=== PATIENT | female | born 1975 | race Caucasian/White ===

== ENCOUNTER 2018-05-10 06:14 | Emergency (ER) | payer OTHER ==
[2018-05-10 06:30] VITALS: BP 99/72; PULSE 108; TEMP 99.1; BMI 20.7
[2018-05-10] MEDS ORDERED: METOCLOPRAMIDE HCL INJECTION 10 MG/2 ML VIAL ONE (06:36)
[2018-05-10 07:02] LABS: BASO % 0.4 % (0-2.0); EOS % 0.3 % (0-4.5); HEMATOCRIT 38.7 % (32.4-45.2); HEMOGLOBIN 13.5 GM/dL (10.7-15.3); LYMPH % 16.6 % (8-40); MCH 32.3 pg (25.7-33.7); MCHC 34.9 g/dl (32.0-36.0); MEAN CELL VOLUME 92.6 fl (80-96); MEAN PLT VOLUME 7.8 fl (7.5-11.1); MONO % 5.4 % (3.8-10.2); NEUT % 77.3 % (42.8-82.8); PLATELET COUNT 289 K/MM3 (134-434); RBC 4.17 M/mm3 (3.60-5.2); RDW 12.8 % (11.6-15.6); WHITE BLOOD COUNT 11.3 K/mm3 (4.0-10.0)
[2018-05-10] MEDS ORDERED: METOCLOPRAMIDE HCL INJECTION 10 MG/2 ML VIAL IVPUSH ONE (07:03)
--- NOTE | 2018-05-10 07:36 | PDOC ---
History of Present Illness - General Chief Complaint: Nausea/Vomiting Stated Complaint: VOMITING Time Seen by Provider: 05/10/18 07:24 History Source: Patient Exam Limitations: No Limitations - History of Present Illness Initial Comments: Patient is a 42 y/o F w/ PMHx H pylori gastritis recently completed Tx, p/w nausea/vomiting x 1 day. Multiple episodes of NBNB vomiting a/w diaphoresis, denies abd pain, diarrhea, dysuria, CP, SOB, CHUNG, lightheadedness. No other complaints. On presentation tachy to 108, BP 99/72. At time of encounter labs had been sent, WBC 11.3, H/H stable, no electrolyte or LFT abnormalities on chemistry. 05/10/18 07:44 Past History - Travel Traveled outside of the country in the last 30 days: No Close contact w/someone who was outside of country & ill: No - Past Medical History Allergies/Adverse Reactions: Allergies Allergy/AdvReac Type Severity Reaction Status Date / Time No Known Allergies Allergy Verified 05/10/18 06:24 Home Medications: Ambulatory Orders Famotidine [Pepcid] 20 mg PO DAILY 12/30/16 Ondansetron HCl [Zofran] 4 mg PO Q6H PRN #16 tablet MDD 24mg 05/10/18 COPD: No - Immunization History Immunization Up to Date: Yes - Suicide/Smoking/Psychosocial Hx Smoking History: Current every day smoker Have you smoked in the past 12 months: No Number of Cigarettes Smoked Daily: 8 Information on smoking cessation initiated: No Hx Alcohol Use: No Drug/Substance Use Hx: No Substance Use Type: None Review of Systems - Review of Systems Comments:: As per HPI 05/10/18 07:51 *Physical Exam - Vital Signs Last Vital Signs Temp Pulse Resp BP Pulse Ox 99.1 F 108 H 18 99/72 99 05/10/18 06:24 05/10/18 06:24 05/10/18 06:24 05/10/18 06:24 05/10/18 06:24 - Physical Exam Comments: Gen: A&Ox3, NAD HEENT: NC/AT, PERRLA, EOMI, dry MM Neck: supple, NT, no LAD, no JVD CV: tachycardic no m/r/g Resp: CTA b/l Abd: +bs, soft, NT, ND Ext: 2+ pulses, wwp, no edema 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, 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, 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 Psych: normal mood, normal affect Skin: warm, dry, normal turgor 05/10/18 07:51 Moderate Sedation - Procedure Monitoring Vital Signs: Procedure Monitoring Vital Signs Temperature 99.1 F 05/10/18 06:24 Pulse Rate 108 H 05/10/18 06:24 Respiratory Rate 18 05/10/18 06:24 Blood Pressure 99/72 05/10/18 06:24 O2 Sat by Pulse Oximetry (%) 99 05/10/18 06:24 ED Treatment Course - LABORATORY CBC & Chemistry Diagram: 05/10/18 06:31 05/10/18 06:31 - ADDITIONAL ORDERS Additional order review: Laboratory Results 05/10/18 06:31 Serum , Qual Negative 05/10/18 06:31 RBC 4.17 MCV 92.6 MCHC 34.9 RDW 12.8 MPV 7.8 D Neutrophils % 77.3 Lymphocytes % 16.6 D Monocytes % 5.4 Eosinophils % 0.3 Basophils % 0.4 - Medications Given in the ED: ED Medications Discontinued Medications Generic Name Dose Route Start Last Admin Trade Name Freq PRN Reason Stop Dose Admin Metoclopramide HCl 10 mg 05/10/18 07:03 05/10/18 07:03 Reglan Injection - IVPUSH 05/10/18 07:04 10 mg NOW ONE Administration Medical Decision Making - Medical Decision Making Labs reassuring. Negative hCG. Patient is mildly tachy, hypotensive, and dry- appearing. Reglan has improved nausea. Will provide fluid bolus and tylenol, give PO challenge. Anticipate DC, will refer back to GI given recent h/o H pylori Tx and PMD. 05/10/18 07:53 Pt improved, passed PO challenge. Repeat abd exam remained soft, NT, ND. Will d/ c w/ f/u instructions as per above, provide outpt Zofran Rx. 05/10/18 09:01 *DC/Admit/Observation/Transfer Diagnosis at time of Disposition: Gastritis Qualifiers: Gastritis type: unspecified gastritis Chronicity: acute - Discharge Dispostion Disposition: HOME Condition at time of disposition: Stable - Prescriptions Prescriptions: Ondansetron HCl [Zofran] 4 mg PO Q6H PRN #16 tablet MDD 24mg PRN Reason: Nausea And/Or Vomiting - Referrals Referrals: Lauren Mcwilliams MD [Primary Care Provider] - - Patient Instructions Printed Discharge Instructions: DI for Nausea -- Adult, DI for Vomiting -- Adult Additional Instructions: You were evaluated for nausea and vomiting. Your lab work was negative. A prescription for nausea medication has been sent to your pharmacy. Please take as needed. 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 If you experience new or worsening vomiting, abdominal pain, diarrhea, urinary problems, chest pain, shortness of breath, or any other new or concerning symptoms, please return to the Emergency Department. - Post Discharge Activity
[2018-05-10 07:39] LABS: ALBUMIN 4.1 g/dl (3.4-5.0); ALK PHOS 65 U/L (45-117); ANION GAP 8 MMOL/L (8-16); BILIRUBIN,TOTAL 0.8 mg/dL (0.2-1); BLOOD UREA NITROGEN 8 mg/dL (7-18); CALCIUM 9.1 mg/dL (8.5-10.1); CHLORIDE 105 mmol/L (98-107); CO2 24 mmol/L (21-32); CREATININE 0.9 mg/dL (0.55-1.3); GLUCOSE,RANDOM 102 mg/dL (74-106); LIPASE 238 U/L (73-393); POTASSIUM 3.6 mmol/L (3.5-5.1); SGOT/AST 32 U/L (15-37); SGPT/ALT 23 U/L (13-61); SODIUM 137 mmol/L (136-145); TOT PROT 7.2 g/dl (6.4-8.2)
[2018-05-10] MEDS ORDERED: LACTATED RINGERS SOLUTION 1000 ML INFUS.BAG IV ONE (07:43)
[2018-05-10] MEDS ORDERED: ACETAMINOPHEN 325 MG TABLET (FP) PO ONE (07:49)
[2018-05-10] MEDS ORDERED: ACETAMINOPHEN 325 MG TABLET (FP) ONE (07:58)
== END 2018-05-10 09:21 | disposition home or self-care (01) ==
LOC: JER 06:14
PROC: 3E033GC Introduction of Other Therapeutic Substance into Peripheral Vein, Percutaneous Approach (ICD-10-PCS; principal; 2018-05-10)
DX: R11.2 Nausea with vomiting, unspecified (principal); R61 Generalized hyperhidrosis; R00.0 Tachycardia, unspecified; Z86.19 Personal history of other infectious and parasitic diseases
CPT/HCPCS: 36415; 80053; 83690; 84703; 85025; 96374; 99282-25

== ENCOUNTER → 2018-06-26 | Day surgery (SDC) | payer OTHER ==
--- NOTE | 2018-06-27 15:06 | PATH ---
Cytology Non-Gynecological Report Patient Name: BRICE TENORIO [facility]. Rec. #: [id number] /Age/Gender: 1975 (Age: 42) / F Account: [id number] Location: RADIOLOGY INTER Taken: 06/26/2018 Received: 06/26/2018 Reported: 06/27/2018 Physicians: Ervin Steinberg M.D. Specimen(s) Received LEFT THYROID FINE NEEDLE ASPIRATION Clinical History Left thyroid nodule, 3.15 x 1.66 x 2.84 cm Final Diagnosis THYROID, LEFT, FINE NEEDLE ASPIRATION: SATISFACTORY FOR EVALUATION. BETHESDA CLASS II: BENIGN. CYTOLOGIC FINDINGS ARE CONSISTENT WITH A BENIGN FOLLICULAR NODULE. SMALL FOLLICULAR CELLS DISPERSED CELLULAR FRAGMENTS, MACRO FOLLICLES, AND AGGREGATES IN A BACKGROUND OF FEW MACROPHAGES AND COLLOID PRESENT. Electronically Signed Heaven Young M.D. Gross Description Received are eight direct smears, four of which are air-dried and Diff-Quik stained, and four of which are alcohol fixed and Pap stained. Also received is 20 ml of bloody formalin from which one cellblock is prepared.
== END | disposition home or self-care (01) ==
LOC: JRADIR 08:15
PROVIDERS: ATTEND Internal Medicine Endocrinology, Diabetes & Metabolism
PROC: 0GJK3ZZ Inspection of Thyroid Gland, Percutaneous Approach (ICD-10-PCS; principal; 2018-06-26)
PROC: BG44ZZZ Ultrasonography of Thyroid Gland (ICD-10-PCS; 2018-06-26)
DX: E04.1 Nontoxic single thyroid nodule (principal)
CPT/HCPCS: 76942; 88173; 88305-TC